=== PATIENT | female | born 1945 | race Caucasian/White ===

== ENCOUNTER 2016-11-27 02:04 | Emergency (ER) | payer OTHER, MEDICARE ==
--- NOTE | 2016-11-27 02:17 | EDPHY ---
H & P HPI/ROS: HPI CHIEF COMPLAINT: Anxiety, panic attack HISTORY OF PRESENT ILLNESS: This patient is a 71-year-old female very pleasant , presents emergency room by private vehicle with her at 2:15 a.m. in the morning for feeling very anxious. Patient tells me that she has tingling in her bilateral hands and bilateral feet this been going on routinely for the past 5 nights. Patient tells me that this evening around 11:00 p.m. she developed tingling in her bilateral hands, tingling in her bilateral feet she felt very anxious she felt as if her speech was stuttering. She denies headache , focal weakness, chest pain or shortness of breath. Denies dizziness. She tells me that this has been progressively getting worse over the past 5 days she did try to make an appointment with her primary care doctor to see if she could get some anxiety medicine. She did not actually see her primary care doctor she decided come to emergency room this evening, she feels her symptoms are getting worse. She is concerned that she may be also having a stroke due to the tingling in her bilateral hands and feet. Past Medical History: She denies any significant medical history, does not take any daily medication Past Surgical History: Tubal ligation Social History: daily alcohol use, denies drugs or tobacco Family History: Noncontributory ROS REVIEW OF SYSTEMS: A comprehensive 10 point review of systems is otherwise negative aside from elements mentioned in the history of present illness. Exam Constitutional anxious appearing, triage nursing summary reviewed, vital signs reviewed, awake/alert. Eyes normal conjunctivae and sclera, EOMI, PERRLA. HENT normal inspection, atraumatic, moist mucus membranes, no epistaxis, neck supple/ no meningismus, no raccoon eyes. Respiratory clear to auscultation bilaterally, normal breath sounds, no respiratory distress, no wheezing. Cardiovascular rate normal, regular rhythm, no murmur, no edema, distal pulses normal. Gastrointestinal soft, non-tender, no rebound, no guarding, normal bowel sounds, no distension, no pulsatile mass. Genitourinary no CVA tenderness. Musculoskeletal no midline vertebral tenderness, full range of motion, no calf swelling, no tenderness of extremities, no meningismus, good pulses, neurovascularly intact. Skin pink, warm, & dry, no rash, skin atraumatic. Neurologic completely normal neurological exam no focal neuro deficits specifically cranial nerves intact, no weakness, awake, alert and oriented x 3, AAOx3, moves all 4 extremities equally, motor intact, sensory intact, CN II-XII intact, normal cerebellar, normal vision, normal speech. Psychiatric normal mood/affect. Heme/Lymph/Immune no lymphadenopathy. Differential Diagnosis: includes but is not limited to in a particular order, acute anxiety attack, panic attack, dehydration, electrolyte abnormality, thyroid disease, doubt acute CVA, doubt TIA, Medical Decision Making: this patient had an IV established, patient be given IV Ativan for anxiety, we will check blood work, she will have an EKG, chest x- ray, CT scan of her head to rule out significant abnormalities however clinically on exam I do feel this is most likely anxiety will see how she benefit from IV Ativan and a L of fluid. Re-evaluation: EKG interpretation by me on record in [employer] system. Impression time of EKG is 3:00 a.m., this is sinus rhythm rate of 76 there is LVH present do not appreciate significant acute ischemia there is some ST segment flattening in V4 V5 and V6 however no ST elevation no prolonged intervals. CT scan of the head without IV contrast. The results of the study are negative for acute disease specifically no bleed or stroke The study was read by Dr. Pichardo. I viewed the images myself on the PACS system [id number]: re-examination at this time this patient is resting comfortably no acute distress she does not have any chest pain or shortness of breath she has no trouble with her speech she does not anxious anymore. She did receive 1 mg IV Ativan she tells me she feels 100% better. I explained to her that I recommend that she gets with her primary care doctor and discuss his about her anxiety and possible anger issues and possible underlying depression. I did recommend that she may want to discuss with her primary care doctor about getting started on a very low-dose antidepressant given this may help with her anxiety and anger issues. She is agreeable for this. At this time I will allow her to be discharged from the emergency room her blood work is reassuring CT scan reassuring, chest x-ray unremarkable EKG reassuring and she feels much better after IV Ativan 1 mg. I will give her a limited prescription for Ativan to take if she feels anxious. She is agreeable to this at bedside understands well. Source: Patient, Family Constitutional: Initial Vital Signs Temperature (C) 36.5 C 11/27/16 02:05 Heart Rate 87 11/27/16 02:05 Respiratory Rate 18 11/27/16 02:05 Blood Pressure 167/79 H 11/27/16 02:05 O2 Sat (%) 95 11/27/16 02:05 O2 Delivery Mode Room Air Allergies/Adverse Reactions: No Known Allergies Allergy (Unverified 11/27/16 02:17) Home Medications: Medication Instructions Recorded Lorazepam [Ativan] 1 mg PO DAILY #0 11/27/16 Medical Decision Making - Data Points Laboratory Results: Laboratory Results 11/27/16 02:10 11/27/16 02:10 11/27/16 11/27/16 04:17 02:10 WBC 6.51 10^3/uL (3.80-9.50) RBC 4.97 10^6/uL (4.18-5.33) Hgb 13.5 g/dL (12.6-16.3) Hct 41.9 % (38.0-47.0) MCV 84.3 fL (81.5-99.8) MCH 27.2 L pg (27.9-34.1) MCHC 32.2 L g/dL (32.4-36.7) RDW 14.0 % (11.5-15.2) Plt Count 249 10^3/uL (150-400) PT 13.0 SEC (12.0-15.0) INR 0.99 (0.83-1.16) VBG Lactic Acid 1.3 mmol/L (0.7-2.1) Sodium 143 mEq/L (134-144) Potassium 4.0 mEq/L (3.5-5.2) Chloride 106 mEq/L (97-110) Carbon Dioxide 24 mEq/l (22-31) Anion Gap 13 mEq/L (8-16) BUN 17 mg/dL (7-23) Creatinine 0.6 mg/dL (0.6-1.0) Estimated GFR > 60 Glucose 114 H mg/dL (70-100) Calcium 9.5 mg/dL (8.5-10.4) Troponin I < 0.012 ng/mL (0-0.034) Urine Color Pending Urine Appearance Pending Urine pH Pending Ur Specific [place] Pending Urine Protein Pending Urine Ketones Pending Urine Blood Pending Urine Nitrate Pending Urine Bilirubin Pending Urine Urobilinogen Pending Ur Leukocyte Esterase Pending Ur Culture Indicated? Pending Urine Glucose Pending Medications Given: Discontinued Medications Sodium Chloride (Ns) 1,000 mls @ 0 mls/hr IV ONCE ONE PRN Reason: Wide Open Stop: 11/27/16 02:32 Last Admin: 11/27/16 02:35 Dose: 1,000 mls Lorazepam (Ativan Injection) 1 mg IVP EDNOW ONE Stop: 11/27/16 02:32 Last Admin: 11/27/16 02:35 Dose: 1 mg Departure - Departure Disposition: Home, Routine, Self-Care Clinical Impression: Acute anxiety Condition: Good Instructions: Anxiety (ED) Additional Instructions: 1. Stay well-hydrated drink lots of fluids. 2. Return to the emergency room if he develops any worsening symptoms questions or concerns includes worsening anxiety, chest pain or shortness of breath. 3.Please get with her primary care doctor about anxiety and possible depression. Referrals: Brittany Prince [Primary Care Provider] - As per Instructions Prescriptions: Lorazepam [Ativan] 1 mg PO DAILY #0
[2016-11-27] MEDS ORDERED: NS 1,000 ML IV ONE (02:31)
[2016-11-27] MEDS ORDERED: LORazepam 2 MG/ML INJ IVP ONE (02:31)
[2016-11-27 02:44] LABS: HEMATOCRIT 41.9 % (38.0-47.0); HEMOGLOBIN 13.5 g/dL (12.6-16.3); MEAN CELL HEMOGLOBIN 27.2 pg (27.9-34.1); MEAN CELL HEMOGLOBIN CONCENTR. 32.2 g/dL (32.4-36.7); MEAN CELL VOLUME 84.3 fL (81.5-99.8); RED BLOOD CELL COUNT 4.97 10^6/uL (4.18-5.33)
[2016-11-27 02:54] LABS: INR 0.99 (0.83-1.16)
[2016-11-27 03:01] LABS: ANION GAP 13 mEq/L (8-16); CALCIUM 9.5 mg/dL (8.5-10.4); CARBON DIOXIDE 24 mEq/l (22-31); CHLORIDE 106 mEq/L (97-110); CREATININE 0.6 mg/dL (0.6-1.0); GLOMERULAR FILTRATION RATE > 60; GLUCOSE 114 mg/dL (70-100); SODIUM 143 mEq/L (134-144)
--- NOTE | 2016-11-27 03:02 | CPEKG ---
Heart Rate: 76 RR Interval: 789 P-R Interval: 164 QRSD Interval: 102 QT Interval: 420 QTC Interval: 473 P [place]: 67 QRS [place]: 50 T Wave [place]: 43 EKG Severity - ABNORMAL ECG - EKG Impression: SINUS RHYTHM EKG Impression: PROBABLE LVH WITH SECONDARY REPOL ABNRM Electronically Signed By: Keely Lyon 27-Nov-2016 20:29:23
[2016-11-27 03:12] LABS: TROPONIN I < 0.012 ng/mL (0-0.034)
[2016-11-27 03:28] VITALS: RESP 16
[2016-11-27 05:00] VITALS: BP 112/68; PULSE 74; TEMP 98.1; O2SAT 97
--- NOTE | 2016-11-27 08:43 | DX ---
Portable AP chest. November 27, 2016At 2:43 AM History: Mental status change. Findings: Lungs are clear. Heart size is normal. No infiltrate or pleural effusion. Impression: Negative portable chest.
--- NOTE | 2016-11-27 15:46 | CT ---
CT Brain (Without Contrast) at 0 250 hours History: Paresthesias. Transient ischemic attack. Comparison: None. Technique: Axial computed tomographic images of the brain without contrast. Dose reduction technique s were utilized. Findings: Ventricles, cisterns, and sulci are slightly widened consistent with mild cerebral atrophy . No hydrocephalus, midline shift/herniation, or epidural/subdural hematomas. No acute intraparenchym al hemorrhage, definite infarct, or mass effect. Bone windows demonstrate no displaced fractures. Par anasal sinuses and mastoid air cells are clear. Impression: 1. Mild cerebral atrophy. 2. No acute hemorrhage, hydrocephalus or mass effect. 3.Consider MRI of the brain without and with contrast enhancement, if there is continued clinical con cern. Findings and recommendations discussed with Emergency Department physician, Dr. Waylon Edwards at 0 30 0 hour, today. Final report concurs with initial preliminary interpretation.
== END 2016-11-27 04:58 | disposition home or self-care (01) ==
DX: F41.9 Anxiety disorder, unspecified (principal)
CPT/HCPCS: 96374